=== PATIENT | male | born 1945 | race Caucasian/White ===

== ENCOUNTER 2016-09-13 07:32 | Day surgery (SDC) | payer MEDICARE ==
[2016-09-13] MEDS ORDERED: LACTATED RINGERS 1,000 ML ONE (07:36)
[2016-09-13] MEDS ORDERED: IV START KIT ONE (07:36)
[2016-09-13] MEDS ORDERED: PROPOFOL 40 ML IV ONE (08:31)
[2016-09-13] MEDS ORDERED: LACTATED RINGERS 1,000 ML IV SCH (09:30)
--- NOTE | 2016-09-15 13:01 | SURGPATH ---
[facility] [address] [place] [id number] Patient Name: BRODERICK REDMAN MR#: [id number] : 1945 Gender: M Specimen #: [id number] Collected: 09/13/2016 Received: 09/14/2016 Reported: 09/15/2016 Submitting Phys: ENE GRADY Copy To Phys: [facility] Clinical History / Pre-Operative Diagnosis: SCREENING COLONOSCOPY Specimen Source / Surgical Procedure Performed: DESCENDING COLON POLYP AT 35 CM Interpretation: COLON, DESCENDING 35 CM, BIOPSY: - MULTIPLE HYPERPLASTIC POLYPS. - NO EVIDENCE OF ADENOMATOUS CHANGE OR MALIGNANCY. Electronically Signed Out Raymond Moulton M.D., Ph.D. Gross Description: The specimen is received in a formalin filled container labeled with the patient's name and "descending colon polyp at 35 cm". Three bourgeois-barron biopsies are each 0.4 cm. Totally embedded in one cassette. Khari Joseph, P.A. Microscopic Description: Examination of multiple levels from the descending colon biopsy at 35 cm shows multiple fragments of colonic mucosa with dilated and hyperplastic glands. There is no evidence of adenomatous change or malignancy. 1: [id number] K63.5
== END 2016-09-13 09:54 | disposition home or self-care (01) ==
LOC: SDC 07:32
PROVIDERS: ATTEND Surgery
PROC: 0DBM8ZZ Excision of Descending Colon, Via Natural or Artificial Opening Endoscopic (ICD-10-PCS; principal; 2016-09-13)
DX: Z12.11 Encounter for screening for malignant neoplasm of colon (principal); K63.5 Polyp of colon; K57.30 Diverticulosis of large intestine without perforation or abscess without bleeding; I10 Essential (primary) hypertension; I25.10 Atherosclerotic heart disease of native coronary artery without angina pectoris; Z87.891 Personal history of nicotine dependence; E78.00 Pure hypercholesterolemia, unspecified; Z95.5 Presence of coronary angioplasty implant and graft
CPT/HCPCS: 45385; J7120